=== PATIENT | male | born 1950 | race Caucasian/White ===

== ENCOUNTER 2019-05-15 16:05 | Emergency (ER) | payer MEDICARE, MEDICAID ==
[~2019-05-15] VITALS: Ht 180.3 cm; Wt 84.1 kg
[2019-05-15] MEDS ORDERED: haloperidol lactate 5mg/ml inj IM ONE (17:10)
[2019-05-15] MEDS ORDERED: LORazepam 2 mg/ml vial IV ONE (17:10)
[2019-05-15] MEDS ORDERED: diphenhydrAMINE 50 mg/ml inj IV ONE (17:10)
[2019-05-15 17:15] LABS: BASOPHILS # (AUTO) 0.1 X10'3 (0-0.2); BASOPHILS % (AUTO) 0.4 % (0-1); EOSINOPHILS % (AUTO) 0.2 % (0-6); HEMATOCRIT 48.2 % (42.0-52.0); HEMOGLOBIN 16.4 g/dl (14.0-17.9); LYMPHOCYTES # (AUTO) 1.4 X10'3 (1.1-4.8); LYMPHOCYTES % (AUTO) 10.8 % (21-51); MEAN CORPUSCULAR HEMOGLOBIN 32.1 PG (27.0-31.0); MEAN CORPUSCULAR VOLUME 94.5 FL (78-98); MEAN PLATELET VOLUME 8.1 FL (7.4-10.4); MONOCYTES # (AUTO) 0.8 X10'3 (0-0.9); MONOCYTES % (AUTO) 5.8 % (2-12); NEUTROPHILS % (AUTO) 82.8 % (42-75); PLATELET COUNT 319 X10'3 (140-440); RED CELL DISTRIBUTION WIDTH 14.1 % (11.5-14.5); WHITE BLOOD COUNT 13.3 X10'3 (4.5-11.0)
[2019-05-15 17:30] LABS: ALANINE AMINOTRANSFERASE 34 U/L (12-78); ALBUMIN 3.5 G/DL (3.4-5.0); ALKALINE PHOSPHATASE 102 IU/L (46-116); ANION GAP 10 (8-16); ASPARTATE AMINO TRANSFERASE 39 U/L (10-37); BILIRUBIN,TOTAL 0.5 MG/DL (0.1-1.0); BLOOD UREA NITROGEN 13 MG/DL (7-18); BUN/CREATININE RATIO 11.7 (5.4-32.0); CALCIUM 8.4 MG/DL (8.5-10.1); CHLORIDE 105 MMOL/L (99-107); CREATININE 1.11 MG/DL (0.60-1.10); GLUCOSE 117 MG/DL (70-104); POTASSIUM 3.3 MMOL/L (3.5-5.1); SODIUM 139 MMOL/L (135-145); TOTAL CARBON DIOXIDE 24.1 MMOL/L (24-32); TOTAL PROTEIN 7.1 G/DL (6.4-8.2); eGFR 66 ML/MIN
[2019-05-15] MEDS ORDERED: ondansetron/PF 4mg/2ml inj IV ONE (18:00)
[2019-05-15] MEDS ORDERED: morphine 4 MG/ML inj SYRINge IV ONE (18:00)
[2019-05-15] MEDS ORDERED: famotidine/PF 10 mg/ml inj IV ONE (18:00)
--- NOTE | 2019-05-15 18:05 | NUR ---
Pt transported to CT via wheelchair with tech.
[2019-05-15] MEDS ORDERED: potassium Cl 20 mEq SR tablet PO STA (18:28)
[2019-05-15 18:48] VITALS: BP 172/81
--- NOTE | 2019-05-15 19:26 | NUR ---
MIYA, CALL FOR RIDE OR IF ADMITTED
== END 2019-05-15 21:21 | disposition home or self-care (01) ==
LOC: ER 16:06
DX: A08.4 Viral intestinal infection, unspecified (principal); I10 Essential (primary) hypertension; I48.91 Unspecified atrial fibrillation; F12.90 Cannabis use, unspecified, uncomplicated; Z88.8 Allergy status to other drugs, medicaments and biological substances
CPT/HCPCS: 36415; 70450; 71045; 80053; 84484; 85025; 85610; 93005; 96372; 96374; 96375; 99284; J1200; J1630; J2060; J2270; J2405; J3490; 64415

== ENCOUNTER 2021-11-08 06:36 | Emergency (ER) | payer MEDICARE, MEDICAID ==
[~2021-11-08] VITALS: Ht 180.3 cm; Wt 95.0 kg
[2021-11-08 06:46] VITALS: BP 183/90
[2021-11-08] MEDS ORDERED: SODI30SP3 BOTHNARES ×3 (08:05→08:21)
[2021-11-08] MEDS ORDERED: NAPR-56 PO ×3 (08:06→08:21)
== END 2021-11-08 08:29 | disposition home or self-care (01) ==
LOC: ER 06:37
DX: S02.5XXA Fracture of tooth (traumatic), initial encounter for closed fracture (principal); J32.9 Chronic sinusitis, unspecified; I10 Essential (primary) hypertension; F12.90 Cannabis use, unspecified, uncomplicated; Z88.6 Allergy status to analgesic agent; X58.XXXA Exposure to other specified factors, initial encounter; Y93.89 Activity, other specified; Y92.89 Other specified places as the place of occurrence of the external cause; Y99.8 Other external cause status
CPT/HCPCS: 99281; 99283